=== PATIENT | male | born 1945 | race Caucasian/White ===

== ENCOUNTER 2017-04-12 10:04 | Day surgery (SDC) | payer MEDICARE ==
[~2017-04-12] VITALS: Ht 170.2 cm; Wt 80.0 kg
[2017-04-12] MEDS ORDERED: LISINOPRIL-HCTZ1 T13 PO (11:04)
[2017-04-12] MEDS ORDERED: GLUCOPHAGE1000 MG PO (11:04)
[2017-04-12] MEDS ORDERED: ZOCOR40 MG PO (11:04)
[2017-04-12] MEDS ORDERED: DESERYL100 MG PO (11:05)
[2017-04-12 11:13] VITALS: Ht 170.2 cm; Wt 80.0 kg
[2017-04-12 11:24] LABS: BASOPHILS 0.4 % (0-2); EOSINOPHILS 1.9 % (0-7); HEMATOCRIT 47.5 % (42.0-54.0); HEMOGLOBIN 16.8 g/dL (13.5-17.5); IMMATURE GRANULOCYTES 0.3 % (0-5); LYMPHOCYTES 26.1 % (15-50); MCH 32.5 pg (26.0-34.0); MCHC 35.4 g/dL (31.0-37.0); MCV 91.9 fL (80.0-100.0); MEAN PLATELET VOLUME 9.9 fL (7.4-10.4); MONOCYTES 6.2 % (2-11); NEUTROPHILS 65.1 % (40-80); PLATELET COUNT 174 10x3/uL (130-400); RBC 5.17 10x6/uL (4.20-6.10); RDW 13.9 % (11.5-14.5); WBC 11.9 10x3/uL (4.8-10.8)
[2017-04-12 11:52] LABS: ANION GAP 19.7 mmol/L (8-16); CALCIUM 9.3 mg/dL (8.5-10.1); CARBON DIOXIDE 21.6 mmol/L (21.0-32.0); CREATININE - SERUM 2.7 mg/dL (0.6-1.3); POTASSIUM - SERUM 4.3 mmol/L (3.5-5.1)
--- NOTE | 2017-04-13 08:45 | OP ---
PATIENT NAME: DOC PADILLA MEDICAL RECORD: [id number] :47 LOCATION:D.OPS ADMISSION DATE: SURGEON: NOAH CORNELIUS MD DATE OF OPERATION: 04/12/2017 Addendum Please add to his colonoscopy report, the patient will need repeat colonoscopy in 3 years. TRANSINT:[id number] Voice Confirmation ID: [id number] DOCUMENT ID: [id number] NOAH CORNELIUS MD at 0845 CC: [id number] DICTATION DATE: 04/12/17 1307 CASTINGS DRAFTER: 04/12/173 [facility] SDC 04/12/17 [facility] [address] [id number]
--- NOTE | 2017-04-13 15:02 | OP ---
PATIENT NAME: DOC PADILLA MEDICAL RECORD: [id number] :47 LOCATION:D.OPS ADMISSION DATE: SURGEON: NOAH CORNELIUS MD DATE OF OPERATION: 04/12/2017 SURGEON: Noah Cornelius MD. PREOPERATIVE DIAGNOSES: 1. Encounter for screening for malignant neoplasm. 2. Hypertension. 3. Type 2 diabetes. POSTOPERATIVE DIAGNOSES: 1. Encounter for screening for malignant neoplasm. 2. Hypertension. 3. Type 2 diabetes. PROCEDURES PERFORMED: Colonoscopy with hot biopsy. BIOPSIES: 1. Cecal polyp. 2. Rectal polyp. ANESTHESIA: Total intravenous anesthesia. COMPLICATIONS: None. SPECIMENS: 1. Cecal polyp at 70 cm. 2. Rectal polyp at 20 cm. BOWEL PREPARATION: Moderate. OPERATIVE COURSE: After consent was obtained, the patient was taken to the endoscopy suite. A total intravenous anesthesia was given. A timeout was taken to confirm the correct patient and procedure. The patient was placed in the left lateral decubitus position. Digital rectal exam was performed. The scope was inserted through the anus. The rectum was insufflated. The scope was advanced under direct endoscopic vision to the cecum. The ileocecal valve was identified. It was intubated. Approximately 16 minutes was spent on withdrawal of the scope. There were 2 polyps identified next to each at 70 cm. Hot biopsies were taken. There was no other evidence of bleeding, no evidence of diverticular disease. During course of 16 minutes, a third polyp was identified at the rectum at approximately 20 cm. Again, a hot biopsy was taken. The scope was then retroflexed. The rectum was identified, there were some mild internal hemorrhoids noted. The scope was re-advanced into the descending colon, this colon was desufflated, and withdrawn. At the end of the procedure, all needle and instrument counts were correct. No complications occurred. The patient was transferred to recovery room in satisfactory condition. TRANSINT:[id number] Voice Confirmation ID: [id number] DOCUMENT ID: [id number] OPERATIVE REPORT [id number] DOC PADILLA NOAH CORNELIUS MD at 1502 CC: [id number] DICTATION DATE: 04/12/17 1305 PLATE SETTER: 04/12/172050 [facility] 04/12/17 [place] [id number]
== END 2017-04-12 14:15 | disposition home or self-care (01) ==
LOC: D.OPS 10:04
PROVIDERS: Anesthesiology
DX: Z12.11 Encounter for screening for malignant neoplasm of colon (principal); D12.0 Benign neoplasm of cecum; D12.8 Benign neoplasm of rectum; I10 Essential (primary) hypertension; E11.9 Type 2 diabetes mellitus without complications; K64.8 Other hemorrhoids

== ENCOUNTER 2017-09-16 05:34 | Day surgery (SDC) | payer MEDICARE ==
[2017-09-15 15:41] LABS: HEMATOCRIT 47.4 % (42.0-54.0); HEMOGLOBIN 16.8 g/dL (13.5-17.5); MCH 32.1 pg (26.0-34.0); MCHC 35.4 g/dL (31.0-37.0); MCV 90.6 fL (80.0-100.0); MEAN PLATELET VOLUME 9.9 fL (7.4-10.4); RBC 5.23 10x6/uL (4.20-6.10); WBC 9.9 10x3/uL (4.8-10.8)
[2017-09-15 16:05] LABS: ANION GAP 14.7 mmol/L (8-16); CARBON DIOXIDE 27.3 mmol/L (21.0-32.0); CREATININE - SERUM 1.1 mg/dL (0.6-1.3)
[~2017-09-16 05:34] MED LIST: DESERYL100 MG PO; GLUCOPHAGE1000 MG PO; LISINOPRIL-HCTZ1 T13 PO; ZOCOR40 MG PO
[2017-09-16 09:02] VITALS: BP 118/64; BMI 28.4
--- NOTE | 2017-09-16 11:59 | NUR ---
ANESTHESIA NOTIFIED OF PATIENTS BP, 3 CONSECTUTIVE OF 80'S / 50'S. PER DR MARINELLI, GIVE 500 ML NS AND MONITOR
--- NOTE | 2017-09-16 12:51 | OP ---
PATIENT NAME: DOC PADILLA MEDICAL RECORD: [id number] :47 [facility]: SURGEON: DARIUSZ COULTER MD DATE OF OPERATION: 09/16/2017 SURGEON: Dariusz Coulter MD ANESTHESIA: General anesthesia by Dr. Marshall. PREOPERATIVE DIAGNOSIS: Elevated PSA, 12.24. PROCEDURES: Transrectal ultrasound and prostate biopsy. FINDINGS: Twenty-gram prostate. No hypoechoic areas. Large numbers of intraprostatic stones. BLOOD LOSS: None. CLINICAL HISTORY: This is a 71-year-old male who has no family history of prostate cancer. He was found to have an elevated PSA, which has continued to rise. The latest level is 12.24. He comes now to have a prostate biopsy. On digital rectal examination, there was no palpable nodule. He is not allergic to any medications. He was given Ancef on-call to the OR. He is also taking Bactrim at home for prophylaxis. He had a Fleet enema the evening before the procedure. DESCRIPTION OF PROCEDURE: The patient was initially given TIVA. He was placed in dorsal lithotomy position. He had a large bowel movement on the operating table from his Fleet enema. He was cleaned up. The transrectal probe was placed in and prostate size measurements were obtained. We then did sextant biopsies. These are left and right apex, mid, and base sextants. From each sextant, at least 3 cores were obtained. Once the procedure was performed, the patient was awakened and brought to the recovery room. TRANSINT:[id number] Voice Confirmation ID: [id number] DOCUMENT ID: [id number] DARIUSZ COULTER MD at 1251 CC: [id number] DICTATION DATE: 09/16/17 1144 FORENSIC ACCOUNTANT: 09/16/17 1215 [facility] [address] [place] [address]
== END 2017-09-16 13:25 | disposition home or self-care (01) ==
LOC: D.OPS 05:34 → D.PAN 10:30 → D.OPS 11:30
PROVIDERS: Anesthesiology
DX: R97.20 Elevated prostate specific antigen [PSA] (principal); F17.200 Nicotine dependence, unspecified, uncomplicated; I10 Essential (primary) hypertension; E11.9 Type 2 diabetes mellitus without complications; K21.9 Gastro-esophageal reflux disease without esophagitis; Z01.812 Encounter for preprocedural laboratory examination

== ENCOUNTER → 2017-09-29 10:23 | Outpatient (CLI) | payer MEDICARE ==
[2017-09-16 09:02] VITALS: BMI 28.4
== END | disposition home or self-care (01) ==
LOC: D.NM 10:23
DX: C61 Malignant neoplasm of prostate (principal)

== ENCOUNTER 2017-11-24 05:45 | Inpatient (IN) | payer MEDICARE ==
[2017-11-23 15:11] LABS: BASOPHILS 0.6 % (0-2); EOSINOPHILS 4.3 % (0-7); HEMATOCRIT 43.7 % (42.0-54.0); HEMOGLOBIN 15.1 g/dL (13.5-17.5); IMMATURE GRANULOCYTES 0.1 % (0-5); LYMPHOCYTES 34.9 % (15-50); MCHC 34.6 g/dL (31.0-37.0); MCV 89.7 fL (80.0-100.0); MEAN PLATELET VOLUME 9.7 fL (7.4-10.4); MONOCYTES 7.2 % (2-11); NEUTROPHILS 52.9 % (40-80); PLATELET COUNT 145 10x3/uL (130-400); RBC 4.87 10x6/uL (4.20-6.10); RDW 13.2 % (11.5-14.5); WBC 7.8 10x3/uL (4.8-10.8)
[2017-11-23 15:21] LABS: INR 0.97 (0.85-1.17); PROTIME 12.5 SECONDS (11.6-15.0)
[2017-11-23 15:22] LABS: APTT 25.4 SECONDS (22.8-39.4)
[2017-11-23 15:27] LABS: ANION GAP 12.2 mmol/L (8-16); CALCIUM 9.4 mg/dL (8.5-10.1); CARBON DIOXIDE 27.3 mmol/L (21.0-32.0); CREATININE - SERUM 1.1 mg/dL (0.6-1.3); POTASSIUM - SERUM 3.5 mmol/L (3.5-5.1)
[2017-11-24] VITALS (8 sets, daily range): BP systolic 80–121; BP diastolic 48–79; BMI 28.4
[~2017-11-24] VITALS: Ht 170.2 cm; Wt 82.2 kg
--- NOTE | ~2017-11-24 | OP ---
PATIENT NAME: DOC PADILLA MEDICAL RECORD: [id number] :47 LOCATION:D[facility] ADMISSION DATE:11/24/17 SURGEON: VIGNESH COULTER MD DATE OF OPERATION: 11/24/2017 CO-SURGEONS: 1. Vignesh Coulter MD 2. Vignesh Ulloa MD ANESTHESIA: General anesthesia by Yris [place] CRNA OPERATIVE DIAGNOSIS: Prostate cancer, Flagstaff 3+3 on the right apex and right base with PSA 12.24, stage T2b N0 M0. PROCEDURES: Radical retropubic prostatectomy, nerve sparing. Bilateral pelvic lymph node dissection. FINDINGS: Pelvic lymph nodes are negative for cancer on frozen section. Small prostate. SPECIMENS: Bilateral pelvic lymph nodes, prostate with attached seminal vesicles and vasa deferentia. BLOOD LOSS: 500 mL. CLINICAL HISTORY: This is a 71-year-old male with history of an elevated PSA of 12.24. He had a prostate biopsy which showed a small prostate with cancer of the prostate on the right side. On the right apex and the right base, was found Flagstaff score 3+3 = 6 prostate cancer. He has normal erectile function and he is continent of urine. He had a metastatic workup which was completely negative. He does have a previous history of diabetes mellitus type 2, hypertension, and colon resection for colon cancer. After much thought, the patient decided to proceed with radical retropubic prostatectomy. Since he has erectile function, we will try to perform a nerve sparing procedure on him. He obtained a Fleet Enema and cleaned the rectum out last night. We did order 2 units of red blood cells be cross matched in case of need. He is not allergic to any medications. He was given ampicillin/sulbactam 3 grams IV on-call to the OR. PROCEDURE: The patient was given induction of general anesthesia. He was placed in supine position with compression stockings on his legs. He was then prepped and draped. A 16-Spanish Farr catheter was inserted into the bladder and put to bag drainage. A 3-inch infraumbilical incision was made, extending from the symphysis pubis cranially along the anterior abdominal wall midline. He has a left paramedian incision from his previous colon resection. Going through the midline of the rectus fascia, we then entered the space of Retzius in the preperitoneal space. We placed Bookwalter retractors, using moistened lap sponges to pad the retractor blades. A bladder blade was used to hold down the bladder by holding the Farr catheter balloon. We then performed the pelvic lymph node dissection. The margins of the pelvic lymph node dissection are anteriorly: the external iliac vein; inferiorly: the circumflex iliac vein; cranially: the bifurcation of the external and internal iliac veins from the common iliac vein; and posteriorly, it is the obturator nerve. Within these borders, we found large OPERATIVE REPORT [id number] DOC PADILLA pelvic nodes and they were taken using clips and Metzenbaum scissors. They were sent for frozen section. Pathology reported that bilateral pelvic lymph nodes were negative for cancer. We then proceeded with the radical retropubic prostatectomy. We wiped the fat from the endopelvic fascia using Kitners. On either side of the lateral surface of the prostate, a small incision was made on the endopelvic fascia, and using a finger, we were able to bluntly dissect the pelvic floor muscles away from the lateral surface of the prostate up to the apex of the prostate. We could palpate the Farr catheter in the urethra at the apex. We placed a backbleeding suture of 2-0 silk on the dorsal vein complex near the bladder neck. We used a Macanese forceps and cauterized away a lot of the surrounding periprostatic fat on the dorsal surface. This allowed us to get a good view of the dorsal venous complex. The patient has a rather tall overhanging pubic bone. Therefore, we had to take down the puboprostatic ligaments in order to get good visibility of the apex of the prostate. This was done using Metzenbaum scissors, hugging the undersurface of the pubic bone. The distal portion of the puboprostatic ligaments were brought down by blunt dissection using the finger. We were then able to put a Cami clamp in the plane between the anterior surface of the urethra and the posterior surface of the dorsal venous complex. A #0 silk suture was placed here and the dorsal venous complex was ligated. We placed another #0 silk to be doubly sure. This was also used to ligate the dorsal venous complex. We finally transected the dorsal venous complex using a #15 blade. The Cami clamp was then used to enter the plane between the posterior urethra, anterior to the rectum. This was used to pull the urethra up. We were able to identify the apex of the prostate. Using a #15 blade, we were able to transect the urethra just distal to the apex of the prostate. The Farr catheter was brought out through the urethral incision and held with a Rosanna clamp. We used this for traction to pull up the apex of prostate and urethra. The posterior wall of the urethra was finally transected using Metzenbaum scissors. He has a fair amount of scarring from his prostate biopsy. Therefore, we had to do some sharp dissection to separate the rectourethralis muscle and then to separate the anterior wall of the rectum from the posterior prostatic surface. During this dissection, there was no tear into the rectum; however, there were little areas of what we thought to be thinness of the rectal wall. Dr. Ulloa put 2-0 Vicryl [id number] to plicate the rectal serosa and muscularis to reinforce this area. For the lateral pedicles, we used a right-angle clamp to dissect and then the portion posterior to the clamp was clipped with large clips. We did not use any Bovie at all in dissecting the prostate out because we did not want to affect the cavernosal nerves going to the penis which would mediate his erections. In this way, the lateral pedicles of the prostate were entirely divided. We then cut through Denonvilliers' fascia using a #15 blade. Using a right-angle clamp, we were able to cut through the full depths of Denonvilliers' fascia. This allowed us to see the seminal vesicles and the vasa deferentia clearly. The seminal vesicles were dissected free up to the apex, at which point they were clipped at the apex and then divided distal to the clip. This was done on each side. The vas deferens was identified on each side. A 2-0 chromic tie was placed around the vas and it was ligated. The vas was then cut distal to the tie. The only area of the prostate still attached to a structure was the bladder neck. We did a bladder neck sparing incision using the cautery. The cautery was used to divide the plane between the bladder neck and the prostate from about [address] way around anteriorly to 5 o'clock. The most posterior portion was taken down using Metzenbaum scissors. We placed a Mason clamp on OPERATIVE REPORT [id number] RANDY,DOC AHRLAN either side of the lateral surface of the bladder neck and had a good look inside and we did identify the ureteral orifices, which were left intact. Using Metzenbaum scissors, the last of the bladder neck transection was performed and the prostate specimen was sent to pathology in formalin. We then everted the bladder mucosa to cover the cut surface of the bladder neck. We used 4-0 simple interrupted Vicryl sutures for this. Since we did a bladder neck sparing transection, the bladder neck opening was actually rather small and we did not need to reduce the bladder neck opening any further. At this point, we placed our anastomotic sutures for the urethra to bladder neck anastomosis. We used a Capio RP suture boom truck driver. Polyglytone 2-0 sutures were placed. Five of these sutures were placed around the clock. They were at 12 o'clock, 2 o'clock, 5 o'clock, 7 o'clock, and 10 o'clock positions. The Capio boom truck driver placed them from outside in into the urethra and pulled the suture through. We tagged each of the sutures so that we would know their location. All [address] with the sutures being placed using a male sound in the urethra to identify the urethra. We then placed the 22-Spanish silicone Farr catheter into the penis, through the cut urethra and into the bladder. The balloon was left deflated for the time being. We then placed the anastomotic sutures through the bladder neck in their corresponding locations. The Capio RP suture has a bullet on one side for use with the suturing device and a standard curved needle for use with regular needle boom truck driver on the other side. Using the needle boom truck driver, we placed the sutures from inside out on the bladder neck so that knots would all be on the outside when tied down. The balloon was then inflated with 10 cc of sterile water. The bladder blade of the Buckwalter retractor was removed. The bladder neck was brought down to the urethral level. Gentle traction was applied on the Farr catheter to maintain the apposition of the 2 structures. The slack was taken out of the sutures and each of the sutures was tied in turn starting from the 12 o'clock position and progressively working posteriorly. At the end of this anastomosis, we then tested the anastomosis by irrigating the catheter. The catheter irrigated quite easily and minimal to no leakage was seen from the urethral anastomosis. At this point, the Bookwalter retractors were all removed and we placed some Surgicel on either side of the pelvic floor to help with hemostasis. A Mulugeta-Cutler drain was placed coming out through the left lower quadrant. This was a #10 flat Mulugeta-Cutler drain. A 2-0 nylon suture was used as a drain suture for the drain. The drain was cut shorter and placed so that it would be in the space of Retzius but not up against the anastomosis. This was put to bulb suction drainage eventually. Once sponge and instrument counts were correct, then the rectus fascia was closed using running looped #0 PDS. The skin was then closed with carlita after irrigating the wound out with saline. A dressing was applied consisting of Telfa adherent bandage. The patient was awakened and brought to the recovery room. He will be admitted to the hospital until he is having regular diet and having bowel movements, at which point he will be discharged home with the indwelling Farr catheter and the Mulugeta-Cutler drain. TRANSINT:[id number] Voice Confirmation ID: [id number] DOCUMENT ID: [id number] OPERATIVE REPORT [id number] DOC PADILLA ROBERT S MD at 2119 CC: [id number] DICTATION DATE: 11/24/17 1351 CARE TRANSPORT NURSE: 11/24/17 1718 ADM IN [facility] [address] [place] [address]
--- NOTE | ~2017-11-24 | OP ---
PATIENT NAME: DOC PADILLA MEDICAL RECORD: [id number] :47 LOCATION:D[facility] ADMISSION DATE:11/24/17 SURGEON: VIGNESH BARTHOLOMEW MD DATE OF OPERATION: 11/24/2017 PROCEDURE: Radical retropubic prostatectomy, nerve sparing with bilateral pelvic lymph node dissections. CO-SURGEONS: Dr. Vignesh Blue and Dr. Vignesh Bartholomew. INDICATION: Prostate cancer. OPERATIVE DIAGNOSIS: Prostate cancer. PROCEDURE: Radical retropubic prostatectomy, nerve sparing with bilateral pelvic lymph node dissections. Due to the complexity of this procedure, it was necessary to have 2 attending surgeons present during the procedure. Please refer to Dr. Blue's note. DESCRIPTION OF THE PROCEDURE: The patient underwent general anesthesia. He was placed in supine position. He was prepped and draped. A 16-Icelandic Farr catheter was inserted into the bladder and put to a drainage bag. A small infraumbilical incision was accomplished in the midline. It extended from the pubic symphysis cranially. Going through the midline of the rectus fascia, we entered the space of Retzius in the retroperitoneal space. Retractors were placed. A bladder blade was used to hold down the bladder by holding the Farr catheter balloon in cephalad orientation. We then performed the pelvic lymph node dissection. I did the pelvic lymph node dissection on the contralateral side. The margins of the pelvic lymph node dissection were anteriorly the external iliac vein, inferiorly the circumflex iliac vein, cranially the bifurcation of the external and internal iliac veins from the common iliac vein and posteriorly the obturator nerve, which was visualized and was retracted for protection. A mike harvest was undertaken and metallic clips were used to ligate the lymphatic vessels in order to help prevent a lymphocele or lymphatic drainage. We then wiped the fat from the endopelvic fasciae with Kitner dissectors. An incision was accomplished in the endopelvic fascia. I did this on the contralateral side. Utilizing finger, I was able to bluntly dissect the pelvic floor muscles away from the lateral surface of the prostate up to the apex of the prostate. We could then palpate the Farr catheter in the urethra at the apex. Most of my dissection was on the contralateral side of the table as was Dr. Blue's. We placed a back bleeding suture of 2-0 silk on the dorsal vein complex near the bladder neck. I then used Chadian forceps and cauterized away of the surrounding periprostatic fat on the dorsal surface. This allowed us to get a good view of the dorsal venous complex. We took down the puboprostatic ligaments in order to get a good visibility of the apex of the prostate. This was done sharply. We hugged the undersurface of the pubic bone. The distal portion of the puboprostatic ligament was brought down by blunt finger OPERATIVE REPORT [id number] DOC PADILLA dissection. We were then able to get a Cami clamp between the anterior surface of the urethra and the posterior surface of the dorsal venous complex. A 0 silk suture was then placed here and the dorsal venous complex was ligated. The dorsal venous complex was divided. The Cami clamp was then used to enter the plane between the posterior urethra anterior to the rectum. This was used to pull the urethra anteriorly. We were able to identify the apex of the prostate gland. Utilizing a scalpel, we were able to transect the urethra just distal to the apex of the prostate. The Farr catheter was brought out through the urethral incision, held with a Rosanna clamp. We used this for traction to pull up the apex of the prostate and urethra. The posterior wall of the urethra was transected. A sharp dissection and blunt dissection was performed to separate the rectourethralis muscle from the anterior wall of the rectum. At no time was there any apparent full thickness injury to the rectal wall. The lateral pedicles of the prostate were divided. We then divided Denonvilliers' fascia. We were able to free up the seminal vesicles and the vas deferentia. The seminal vesicles were dissected free up to the apex, at which point they were clipped at the apex and divided distal to the clip. The vas deferens was identified on either side, and ligated and divided. The bladder neck was incised with electrocautery. The prostate gland was removed. We everted the bladder mucosa with 4-0 Vicryl sutures. I made sure that the bladder neck was of an appropriate size. Polyglytone 2-0 sutures were placed at 5 positions around the urethra. These were then sutured around the bladder neck. This was with the Farr catheter in the bladder neck. We then inflated the Farr catheter balloon. We then tied down on all 5 sutures ensuring that the knots were outside of the lumen of the urethra. We checked for integrity of the anastomosis by injecting normal saline. Hemostatic agent was then applied distally and posteriorly to the distal bladder near the anastomosis. A flat closed suctioned drain was brought out and sutured skin with a nylon. There was no further bleeding. The midline fascia was closed with a running looped #0 PDS. Metallic clips were used to close the skin. TRANSINT:[id number] Voice Confirmation ID: [id number] DOCUMENT ID: [id number] VIGNESH BARTHOLOMEW MD at 1131 CC: [id number] DICTATION DATE: 11/26/17 1216 ASSISTANT PROFESSOR OF RADIOLOGY: 11/26/17 1400 DIS IN 11/26/17 [facility] [address] [place] [address]
[2017-11-24 16:52] LABS: BASOPHILS 0.2 % (0-2); EOSINOPHILS 0.4 % (0-7); HEMATOCRIT 38.9 % (42.0-54.0); HEMOGLOBIN 12.9 g/dL (13.5-17.5); IMMATURE GRANULOCYTES 0.3 % (0-5); LYMPHOCYTES 12.8 % (15-50); MCH 31.2 pg (26.0-34.0); MCHC 33.2 g/dL (31.0-37.0); MEAN PLATELET VOLUME 9.7 fL (7.4-10.4); MONOCYTES 7.2 % (2-11); NEUTROPHILS 79.1 % (40-80); PLATELET COUNT 158 10x3/uL (130-400); RBC 4.14 10x6/uL (4.20-6.10); RDW 13.7 % (11.5-14.5)
[2017-11-24 16:53] LABS: WBC 18.5 10x3/uL (4.8-10.8)
[2017-11-24 17:16] LABS: CALC OSMOLALITY 287 mosm/kg (275-300); CALCIUM 7.8 mg/dL (8.5-10.1); CHLORIDE - SERUM 107 mmol/L (98-107); GLUCOSE 168 mg/dL (74-106); SODIUM 142 mmol/L (136-145); UREA NITROGEN 14 mg/dL (7-18); eGFR NON AFRICAN AMERICAN 79 mL/min (90-120)
[2017-11-24 17:19] LABS: CARBON DIOXIDE 19.6 mmol/L (21.0-32.0)
[2017-11-25 01:32] VITALS: BP 92/48
[2017-11-25 06:33] VITALS: BP 113/50
[2017-11-25 09:20] VITALS: BP 123/64
[2017-11-25 12:20] VITALS: BP 124/59
[2017-11-25 15:17] VITALS: Ht 170.2 cm; Wt 82.2 kg
[2017-11-25 16:34] VITALS: BP 117/63
[2017-11-25 20:54] VITALS: BP 106/58
[2017-11-26 00:53] VITALS: BP 128/63
[2017-11-26 04:00] VITALS: BP 149/78
[2017-11-26 05:41] LABS: BASOPHILS 0.3 % (0-2); EOSINOPHILS 1.1 % (0-7); HEMATOCRIT 32.6 % (42.0-54.0); IMMATURE GRANULOCYTES 0.2 % (0-5); LYMPHOCYTES 22.3 % (15-50); MCH 30.9 pg (26.0-34.0); MCHC 33.7 g/dL (31.0-37.0); MEAN PLATELET VOLUME 9.6 fL (7.4-10.4); NEUTROPHILS 69.1 % (40-80); PLATELET COUNT 154 10x3/uL (130-400); RBC 3.56 10x6/uL (4.20-6.10); RDW 13.7 % (11.5-14.5)
[2017-11-26 06:10] LABS: ANION GAP 17.5 mmol/L (8-16); CALCIUM 8.2 mg/dL (8.5-10.1); CARBON DIOXIDE 21.8 mmol/L (21.0-32.0); CREATININE - SERUM 1.2 mg/dL (0.6-1.3)
[2017-11-26 06:15] LABS: POTASSIUM - SERUM 3.3 mmol/L (3.5-5.1)
[2017-11-26 06:17] LABS: MCV 91.6 fL (80.0-100.0); WBC 12.4 10x3/uL (4.8-10.8)
[2017-11-26 08:34] VITALS: BP 106/49
== END 2017-11-26 12:34 | disposition home or self-care (01) | DRG 708 ==
LOC: D.SDCHOLD 05:45 → D.MS 05:45 → D.SDCHOLD 07:30 → D.MS 13:52
PROVIDERS: Anesthesiology; Internal Medicine Nephrology; Urology
PROC: 07BC0ZZ Excision of Pelvis Lymphatic, Open Approach (ICD-10-PCS; 2017-11-24)
PROC: 0VT00ZZ Resection of Prostate, Open Approach (ICD-10-PCS; principal; 2017-11-24 08:00)
DX: C61 Malignant neoplasm of prostate (principal); E11.9 Type 2 diabetes mellitus without complications; I10 Essential (primary) hypertension; F17.200 Nicotine dependence, unspecified, uncomplicated